=== PATIENT | female | born 1980 | race Caucasian/White ===

== ENCOUNTER 2016-11-02 12:14 | Emergency (ER) | payer MEDICAID, OTHER ==
[~2016-11-02] VITALS: Ht 167.6 cm; Wt 63.6 kg
[~2016-11-02 12:14] MED LIST: ACHD5005 PO; ACHYD1T PO; ACYC800T PO; ALBU17AE3 IH; ALBU2.5V4 IH; AMT10T PO; AZIT-21 PO; CEPH500C PO; CETI1TAB61 PO; CIPR500T78 PO; CLNZ.5T PO; CPR500T PO; CYCL10TA9 PO; DCS100C PO; DOXY100T2 PO; ESTR42.52 VG; FAMO20TA5 PO; FLUC200T45 PO; HYDR-2854 PO; HYDR-3720 PO; HYDR-707 PO; HYDR-757 PO; HYDR-91 PO; HYDR1TAB PO; HYDR50TA76 PO; IBP600T1 PO; IBP800T PO; INDM25C PO; LORA0.5T PO; METH4TAB PO; METR500T PO; NAPR-243 PO; NAPR250T34 PO; NITR-65 PO; NORG1TAB69 PO; OXYC-12 PO; OXYC-272 PO; OXYC10TA7 PO; PENT100C5 PO; PHEN-452 PO; PHEN200T27 PO; PRD20T PO; RNT150T; SERT50TA PO; SOLI5TAB4 PO; SRTR100T PO; SULF-222 PO; TRAM-21 PO; TRAZ150T42 PO; YAZ; ZLP10T PO; [UNRECOGNIZED DRUG - OTHER] PO; prozac PO; sprintec PO
--- OUTSIDE RECORDS SUMMARY | 2016-11-02 12:20 | XMS REPORT | Continuity of Care Document ---
Author Author [facility] Organization [facility] Address Unknown Phone Unavailable Care Team Providers Care Securities Dealer Name Role Phone Mason Contrerasel PCP [phone] Source Comments Some departments are not documenting in the electronic medical record. If you do not see the information that you expected, contact Release of Information in the Health Information Management department at [phone] for further assistance in locating additional records.[facility] Active Allergies and Adverse Reactions Allergen Noted Date Severity Reactions Comments Cymbalta 04/06/2015 High SEIZURES Darvocet 04/06/2015 Medium HIVES Indomethacin 04/14/2015 Medium HIVES Ultram 04/06/2015 High SEIZURES Current Medications Prescription Sig. Disp. Refills Start End Date Status Date hydrOXYzine (ATARAX) 25 Take 25 mg by mouth at Active mg tablet bedtime daily. pentosan polysulfate Take 100 mg by mouth Active sodium (ELMIRON) 100 mg twice daily. capsule SERTRALINE HCL (ZOLOFT Take by mouth daily. Active PO) CETIRIZINE Take by mouth daily. Active HCL/PSEUDOEPHEDRINE (ZYRTEC-D PO) estradiol (ESTRACE) 1 mg Take 1 mg by mouth daily. Active tablet diazepam (VALIUM) 5 mg Take 5 mg by mouth as Active tablet Needed for Anxiety (For bladder spasms). other medication 1 Dose as Needed (For Active bladder spasms). Belladonna and Opium suppository oxycodone(+) (DAZIDOX) 10 Take 10 mg by mouth as Active mg tablet Needed Active Problems Problem Noted Date Interstitial cystitis 04/06/2015 Last Assessment & Plan: Plan: 1. Will schedule patient for Urodynamics to further evaluate her voiding dysfunction symptoms on 05/05/15 2. Will also scheduled cystoscopy with hydro-distension of the bladder for her IC with Dr. Austin on 05/06/15 3. Consented today 4. DOS orders placed 5. Abx gastroenterology nurse practitioner to OR 6. Patient is to continue on her current therapy for IC as well. Social History Tobacco Use Types Packs/Day Years Used Date Current Every Day Smoker Cigarettes 1 20 Smokeless Tobacco: Never Used Alcohol Use Drinks/Week oz/Week Comments No 0 Standard 0.0 drinks or equivalent Last Filed Vital Signs Vital Sign Reading Time Taken Blood Pressure 126/78 05/06/2015 2:15 PM CDT Pulse 81 05/06/2015 2:30 PM CDT Temperature 36.4 C (97.5 F) 05/06/2015 11:19 AM CDT Respiratory Rate - - Height 1.676 m (5' 6") 05/06/2015 8:42 AM CDT Weight 67.5 kg (148 lb 13 oz) 05/06/2015 8:42 AM CDT Body Mass Index 24.03 05/06/2015 8:42 AM CDT Oxygen Saturation 96% 05/06/2015 2:15 PM CDT Plan of Care Health Maintenance Due Date Last Done Comments Physical (Comprehensive) 1985 Exam Pertussis Vaccine 1989 Tetanus Vaccine 1995 Cervical Cancer Screening 1999 Influenza Vaccine 06/14/2016 Results from Last 3 Months Not on file
[2016-11-02] MEDS ORDERED: LISD50CA PO (12:54)
[2016-11-02] MEDS ORDERED: DIAZ10TA PO (12:54)
[2016-11-02] MEDS ORDERED: HYOS0.1283 SL (12:54)
[2016-11-02] MEDS ORDERED: PENT100C3 PO (12:54)
[2016-11-02] MEDS ORDERED: GABA100C PO (12:54)
--- NOTE | 2016-11-02 13:46 | Diagnostic Imaging Report ---
3 views of the right foot. INDICATION: Fall. FINDINGS: No fracture, dislocation, or radiopaque foreign body. There is satisfactory alignment seen. On the lateral projection there is ossification projecting superiorly from the tarsometatarsal joint level not well delineated on the AP or oblique projections. This could be degenerative dorsal osteophyte. IMPRESSION: Small ossific density projecting dorsally at the level of the tarsometatarsal joint may relate to a degenerative spur. If there is focal tenderness at this location or suspicion of injury of the tarsometatarsal joint, then further evaluation with CT scan or MRI of the midfoot could be considered. Dictated by: Dictated on workstation # [id number]
--- NOTE | 2016-11-02 13:52 | Diagnostic Imaging Report ---
EXAMINATION: Three views of the right ankle. INDICATION: Fall. FINDINGS: There is no fracture, dislocation, or radiopaque foreign body. The ankle mortise is normal in configuration. IMPRESSION: Unremarkable exam. Dictated by: Dictated on workstation # [id number]
[2016-11-02] MEDS ORDERED: IBUP-1780 PO (14:09)
[2016-11-02] MEDS ORDERED: [UNRECOGNIZED DRUG - CODE] MC (14:09)
--- NOTE | 2016-11-02 14:09 | ED Lower Extremity ---
General Chief Complaint: Lower Extremity Stated Complaint: FALL/RIGHT ANKLE INJURY Nursing Triage Note: MISSED LAST STEP ON STAIRS. OCCURRED LAST NIGHT. STATES R-FOOT IS THROBBING, KEPT HER UP AT NIGHT. Nursing Sepsis Screen: No Definite Risk Source: patient Exam Limitations: no limitations History of Present Illness Time seen by provider: 13:52 Initial Comments 36 yo female patient presents to the ED with c/o twisting her rt foot/ankle last night. patient reports she was going down the stairs when she missed the last step. Location Injury Occurred: home Onset: yesterday Pain/Injury Location: right foot, right ankle Method of Injury: twisted Modifying Factors: Worse With Movement Allergies and Home Medications Allergies Coded Allergies: dichloralphenazone (Unverified Allergy, Mild, 09/27/09) isometheptene (Unverified Allergy, Mild, 09/27/09) propoxyphene (Unverified Allergy, Mild, 05/08/09) duloxetine (Unverified Allergy, Unknown, SEIZURE, 08/13/14) indomethacin (Verified Allergy, Unknown, 08/13/14) tramadol (Unverified Allergy, Unknown, SEIZURE, 08/13/14) Home Medications Cetirizine Hcl/Pseudoephedrine 1 Each Tab.er.12h 1 EACH PO DAILY (Reported) Diazepam 10 Mg Tablet 10 MG PO (Reported) Gabapentin 100 Mg Capsule 100 MG PO HS (Reported) Hydroxyzine Hcl 10 Mg Tablet 1 EACH PO HS (Reported) Hyoscyamine Sulfate 0.125 Mg Tab.subl 0.125 MG SL PRN (Reported) PT. TAKES THIS FOR BLADDER SPASMS PRN Ibuprofen 800 Mg Tab 800 MG PO Q6H (Reported) Ibuprofen 800 Mg Tablet #20 800 MG PO Q8H PRN PRN PAIN Prescribed by: CEDRIC PAEZ on 11/02/16 1409 Lisdexamfetamine Dimesylate 50 Mg Capsule 50 MG PO DAILY (Reported) Norgestimate-Ethinyl Estradiol 1 Each Tablet 1 EACH PO (Reported) Oxycodone Hcl 10 Mg Tablet 10 MG PO Q12H (Reported) Pentosan Polysulfate Sodium 100 Mg Capsule 100 MG PO DAILY (Reported) Phenazopyridine Hcl 200 Mg Tablet 1 EACH PO TID (Reported) Sertraline Hcl 50 Mg Tablet 50 MG PO DAILY (Reported) Constitutional: no symptoms reported Respiratory: no symptoms reported Cardiovascular: no symptoms reported Musculoskeletal: see HPINo back pain, joint pain joint swellingNo neck pain Skin: change in color (ecchymosis rt foot and ankle.) Psychiatric/Neurological: No Symptoms Reported All Other Systems Reviewed Negative Unless Noted: Yes (Negative excepted noted.) Past Vslqgki-Vxkroh-Vbmlpi Hx Patient Social History Alcohol Use: Denies Use Recreational Drug Use: No (SMOKES 1/4 TO 1/2 PACK PER DAY) Smoking Status: Former Smoker Type Used: Cigarettes Recent Foreign Travel: No Contact w/Someone Who Travel: No Recent Infectious Disease Expo: No Recent Hopitalizations: Yes ( [facility]) Physical Abuse Screen: No Sexual Abuse: No Immunizations Up To Date Tetanus Booster (TDap): Less than 5yrs Date of Influenza Vaccine: Oct 04, 2016 Seasonal Allergies Seasonal Allergies: Yes Surgeries HX Surgeries: Yes (LEFT OVARIAN CYST X 3, CYSTOSCOPIES) Surgeries: Appendectomy, Hysterectomy, Orthopedic Respiratory Hx Respiratory Disorders: No Cardiovascular Hx Cardiac Disorders: No Neurological Hx Neurological Disorders: Yes (SEIZURE WHEN SHE TAKES ULTRAM) Neurological Disorders: Seizure Disorder Reproductive System Hx Reproductive Disorders: Yes Sexually Transmitted Disease: No HIV/AIDS: No Female Reproductive Disorders: Endometriosis, Ovarian Cyst CLOTHING CONSULTANT History: Hysterectomy Genitourinary Hx Genitourinary Disorders: Yes (INTERSTITIAL CYSTITIS) Genitourinary Disorders: Kidney Infection, Bladder Infection, Kidney Stones Gastrointestinal Hx Gastrointestinal Disorders: No Musculoskeletal Hx Musculoskeletal Disorders: Yes (LEFT HIP BURSITIS. LEFT PATELLA DISLOCATION) Endocrine Hx Endocrine Disorders: No HEENT HX ENT Disorders: No Cancer Hx Cancer: No Psychosocial Hx Psychiatric Problems: Yes Behavioral Health Disorders: Anxiety, Suicide Attempts, Depression Integumentary HX Skin/Integumentary Disorder: No Blood Transfusions Hx Blood Disorders: No Adverse Reaction to a Blood Tr: No Reviewed Nursing Assessment Reviewed/Agree w Nursing PMH: Yes Family Medical History Significant Family History: No Pertinent Family Hx Physical Exam Vital Signs Vital Sign - Last 12Hours 11/02/16 11/02/16 12:39 14:17 Temp 98.5 Pulse 113 Resp 18 B/P 140/81 Pulse Ox 99 O2 Delivery Room Air Capillary Refill : Less Than 3 Seconds General Appearance: WD/WN no apparent distress Cardiovascular: normal peripheral pulses Legs: bilateral leg non-tender, bilateral leg normal inspection, bilateral leg normal range of motion, bilateral leg no evidence of injury Knees: bilateral knee non-tender, bilateral knee normal inspection, bilateral knee normal range of motion, bilateral knee no evidence of injury Ankles: left ankle non-tender, left ankle normal inspection, left ankle normal range of motion, left ankle no evidence of injury, right ankle bone tenderness ( lateral malleolus), right ankle ecchymosis (lateral ankle), right ankle limited range of motion, right ankle pain, right ankle soft tissue tenderness, right ankle swelling Feet: left foot non-tender, left foot normal inspection, left foot normal range of motion, left foot no evidence of injury, right foot limited range of motion, right foot pain, right foot soft tissue tenderness (proximal lateral foot), right foot swelling (proximal lateral foot) Neurologic/Tendon: normal sensation normal motor functions normal tendon functions responds to pain no evidence tendon injury Neurologic/Psychiatric: no motor/sensory deficits alert normal mood/affect oriented x 3 Skin: normal color warm/dry ecchymosis (rt lateral ankle and foot.) Progress/Results/Core Measures Results/Orders My Orders Orders-CEDRIC PAEZ Foot, Right, 3 View (11/02/16 13:10) Ankle, Right, 3 Views (11/02/16 13:10) Ibuprofen Tablet (Motrin Tablet) (11/02/16 14:15) Medications Given in ED Current Medications Medications Dose Ordered Sig/Jr Route Start Time Stop Time Status Last Admin Dose Admin Ibuprofen 800 mg ONCE ONCE PO 11/02/16 14:15 11/02/16 14:16 DC 11/02/16 14:15 800 MG Vital Signs/I&O Vital Sign - Last 12Hours 11/02/16 11/02/16 12:39 14:17 Temp 98.5 98.5 Pulse 113 92 Resp 18 18 B/P 140/81 Pulse Ox 99 O2 Delivery Room Air Blood Pressure Mean: 100 Diagnostic Imaging Diagonstic Imaging: Xray Plain Films/CT/US/NM/MRI: ankle Comments FINDINGS: There is no fracture, dislocation, or radiopaque foreign body. The ankle mortise is normal in configuration. IMPRESSION: Unremarkable exam. Dictated by: Dictated on workstation # [id number] Reviewed: Reviewed by Me (radiology report reviewed by me.) Diagonstic Imaging: Xray Plain Films/CT/US/NM/MRI: other (rt foot) Comments FINDINGS: No fracture, dislocation, or radiopaque foreign body. There is satisfactory alignment seen. On the lateral projection there is ossification projecting superiorly from the tarsometatarsal joint level not well delineated on the AP or oblique projections. This could be degenerative dorsal osteophyte. IMPRESSION: Small ossific density projecting dorsally at the level of the tarsometatarsal joint may relate to a degenerative spur. If there is focal tenderness at this location or suspicion of injury of the tarsometatarsal joint , then further evaluation with CT scan or MRI of the midfoot could be considered. Dictated by: Dictated on workstation # [id number] Reviewed: Reviewed by Me (radiology report reviewed by me. ) Departure Communication Progress Notes Allergies discussed with the patient. Patient states she IS able to take ibuprofen without difficulty. Patient is driving herself home from the ED. 1400 Diagnostic findings discussed with the patient. Patient's rt foot/ankle wrapped with a 3 in felipe wrap. Proceed with discharge to home. Impression Impression: Primary Impression: Sprain of ankle, right Qualified Code: S93.401A - Sprain of unspecified ligament of right ankle, initial encounter Disposition: HOME, SELF-CARE Condition: Improved Departure-Patient Inst. Decision time for Depature: 14:05 Referrals: KARI INIGUEZ MD (PCP/Family) Primary Care Physician Patient Instructions: Ankle Sprain (DC) Add. Discharge Instructions: All discharge instructions reviewed with patient and/or family. Voiced understanding. Medications as instructed. Tylenol extra strength over-the- counter as directed for pain. Elevate right ankle and foot on pillows, ice pack for 20 minute intervals as needed for pain. Ankle brace as instructed. Follow-up with Dr. Iniguez if no improvement in symptoms in 7-10 days. Return to the emergency department for worsened symptoms or any other concerns. Scripts Leg Brace (Deluxe Laced Ankle Brace)1 Each Each #1 EACH MC PRN PRN PAIN Ref 0 Prov:CEDRIC PAEZ 11/02/16 Ibuprofen 800 Mg [id number] Mg PO Q8H PRN PAIN #20 TAB Ref 0 Prov:CEDRIC PAEZ 11/02/16 CEDRIC PAEZ Nov 02, 2016 14:09
[2016-11-02] MEDS ORDERED: IBUPROFEN 800 MG (MOTRIN) TAB PO ONE (14:15)
[2016-11-02 14:17] VITALS: BP 140/81
== END 2016-11-02 14:17 | disposition home or self-care (01) ==
LOC: EDUNIT# 12:14 → ER 12:16
DX: S93.401A Sprain of unspecified ligament of right ankle, initial encounter (principal); Z87.891 Personal history of nicotine dependence; W10.9XXA Fall (on) (from) unspecified stairs and steps, initial encounter; Y92.009 Unspecified place in unspecified non-institutional (private) residence as the place of occurrence of the external cause; Y99.8 Other external cause status
CPT/HCPCS: 73610; 73630